=== PATIENT | male | born 1995 | race Caucasian/White ===

== ENCOUNTER 2016-05-24 16:39 | Emergency (ER) | payer OTHER ==
--- NOTE | 2016-05-24 16:58 | ED NURSING NOTES ---
Clinical Report - Nurses [facility] [address] [place] [address] 05/24/2016 16:41 Patient: AMARA RAMIREZ TRIAGE Triage time 16:47. Acuity: LEVEL 3. Chief Complaint: INJURY TO LEFT HAND. INJURY TO THE LEFT INDEX FINGER. Alert. No acute distress. --16:53 Lyubov Blanco R.N. 16:47 05/24/16. BP: 138/64. HR: 83. RR: 16. O2 saturation: 100%. Temp: 98.8 F (oral). Pain level now: 0/10. --16:53 Lyubov Blanco R.N. 16:47 05/24/16. BP: 138/64. HR: 83. RR: 16. O2 saturation: 100%. Temp: 98.8 F (oral). Pain level now: 0/10. --16:53 Lyubov Blanco R.N. Weight: 73 kg stated. Height/Length: 70 inches Per Patient. BMI: 23.1. --16:50 Lyubov Blanco R.N. Medications None. --16:48 Lyubov Blanco R.N. Medication/allergy information source: the patient. --16:53 Lyubov Blanco R.N. Allergies No Known Drug Allergy. --16:48 Lyubov Blanco R.N. History Arrived by private vehicle. Historian: patient. No primary care physician. This occurred just prior to arrival. Occurred at work. He sustained a laceration from a knife. Treatment VENEREAL DISEASE CONTROL HEAD: None. PAST MEDICAL HX: Negative. Tetanus status: unknown. SURGERY HX: ( ear tubes). SOCIAL HX: Light tobacco smoker (cigarette)- less than 1/2 a pack per day. Alcohol use; consumes four beers a day. FALL RISK ASSESSMENT: Fall risk assessment completed. No fall risk identified. NUTRITIONAL RISK ASSESSMENT: The nutritional risk assessment revealed no deficiencies. FUNCTIONAL ASSESSMENT: Functional assessment: no impairments noted. LEARNING NEEDS ASSESSMENT: The learning needs assessment revealed no barriers. SKIN INTEGRITY ASSESSMENT: Skin integrity risk assessment completed. No skin integrity risk identified. --16:53 Lyubov Blanco R.N. Interventions ID band on patient. To room. --16:53 Lyubov Blanco R.N. PHYSICAL ASSESSMENT Ambulatory to room. GENERAL / NEURO / PSYCH: Oriented X 4. Alert. Appears anxious. EXTREMITIES: Left index finger: superficial 1.5 cm laceration with controlled bleeding. SKIN: Skin is warm and dry. Laceration to left index finger. No bleeding. --16:54 Lyubov Blanco R.N. NURSING PROGRESS NOTES 16:46 05/24/2016 TDAP IM 0.5 mL given. (Lot#: [id number], expiration date: 12/18/2017, Client Relations Representative: sanofi pasteur). Given in the right deltoid. Allergies verified and confirmed 5 rights. Vaccine information statement provided to the patient. --16:51 Riley Ortiz R.N. Extremity elevated. Two patient identifiers checked. Call light placed in reach. Side rails up x 2. Bed placed in lowest position. Brakes of bed on. Patient ready for evaluation. --16:54 Lyubov Blanco R.N. Wound cleansed with water. --16:54 Lyubov Blanco R.N. late entry -17:05. Applied dressing consisting of Band-Aid, following the application of antibiotic ointment. --17:11 Riley Ortiz R.N. DISPOSITION / DISCHARGE 17:10 05/24/16. Condition at departure: improved. The goals identified in the patient's plan of care were met. No learning barriers present. Discharge instructions provided and reviewed with the patient. Reviewed warnings. Reviewed medication(s). Treatments reviewed. Patient verbalized understanding. Written instructions provided in [place]. The patient was discharged by the nurse practitioner. He was discharged home and unaccompanied at time of discharge. He left the Emergency Department ambulatory and via private vehicle. Patient driving. FALL RISK ASSESSMENT: Fall risk assessment completed. No fall risk identified. --17:10 Riley Ortiz R.N. 16:47 05/24/16. BP: 138/64. HR: 83. RR: 16. O2 saturation: 100%. Temp: 98.8 F (oral). Pain level now: 0/10. --17:10 Riley Ortiz R.N. 17:11 05/24/16. Departure time: 17:11. --17:11 Riley Ortiz R.N. Locked/Released at 05/24/2016 17:16 by Riley Ortiz R.N.
--- NOTE | 2016-05-24 16:58 | ED ORDER SUMMARY ---
..... Patient: AMARA RAMIREZ OrderSheet [facility] VisitID: [id number] [address] [place] [address] 21y, M Registration Date/Time: 05/24/2016 ORDER SHEET Weight: 73.0 kg (stated) Allergies: No Known Drug Allergy GENERAL ORDERS: Dress Wounds (16:54 05/24/2016 HBivens A.R.N.P.) (Ack 16:56 SRoberts R.N.) (16:56 SRoberts R.N.) MEDICATION ORDERS: Tdap IM 0.5 mL (NOW, per protocol) (16:50 05/24/2016 Shantel R.N. per protocol) (16:51 Shantel R.N.) IV FLUIDS: ORDER SHEET NOTES: [Electronically signed by Riley Ortiz R.N. (17:16 05/24/2016)] [Electronically signed by Valerie BonillaRMichelleN.PMichelle (17:17 05/24/2016)] [Electronically locked/signed by Riley Ortiz R.N. (17:16 05/24/2016)]
--- NOTE | 2016-05-24 16:58 | ED ORDER SUMMARY ---
..... Patient: AMARA RAMIREZ OrderSheet [facility] VisitID: [id number] [address] [place] [address] 21y, M Registration Date/Time: 05/24/2016 ORDER SHEET Weight: 73.0 kg (stated) Allergies: No Known Drug Allergy GENERAL ORDERS: Dress Wounds (16:54 05/24/2016 HBivens A.R.N.P.) (Ack 16:56 SRoberts R.N.) (16:56 SRoberts R.N.) MEDICATION ORDERS: Tdap IM 0.5 mL (NOW, per protocol) (16:50 05/24/2016 Shantel R.N. per protocol) (16:51 Shantel R.N.) IV FLUIDS: ORDER SHEET NOTES: [Electronically signed by Riley Ortiz R.N. (17:16 05/24/2016)] [Electronically signed by Valerie BonillaRMichelleN.PMichelle (17:17 05/24/2016)] [Electronically locked/signed by Riley Ortiz R.N. (17:16 05/24/2016)]
--- NOTE | 2016-05-24 16:58 | ED NURSING NOTES ---
Clinical Report - Nurses [facility] [address] [place] [address] 05/24/2016 16:41 Patient: AMARA RAMIREZ TRIAGE Triage time 16:47. Acuity: LEVEL 3. Chief Complaint: INJURY TO LEFT HAND. INJURY TO THE LEFT INDEX FINGER. Alert. No acute distress. --16:53 Lyubov Blanco R.N. 16:47 05/24/16. BP: 138/64. HR: 83. RR: 16. O2 saturation: 100%. Temp: 98.8 F (oral). Pain level now: 0/10. --16:53 Lyubov Blanco R.N. 16:47 05/24/16. BP: 138/64. HR: 83. RR: 16. O2 saturation: 100%. Temp: 98.8 F (oral). Pain level now: 0/10. --16:53 Lyubov Blanco R.N. Weight: 73 kg stated. Height/Length: 70 inches Per Patient. BMI: 23.1. --16:50 Lyubov Blanco R.N. Medications None. --16:48 Lyubov Blanco R.N. Medication/allergy information source: the patient. --16:53 Lyubov Blanco R.N. Allergies No Known Drug Allergy. --16:48 Lyubov Blanco R.N. History Arrived by private vehicle. Historian: patient. No primary care physician. This occurred just prior to arrival. Occurred at work. He sustained a laceration from a knife. Treatment DIRECTOR OF INCOME TAX: None. PAST MEDICAL HX: Negative. Tetanus status: unknown. SURGERY HX: ( ear tubes). SOCIAL HX: Light tobacco smoker (cigarette)- less than 1/2 a pack per day. Alcohol use; consumes four beers a day. FALL RISK ASSESSMENT: Fall risk assessment completed. No fall risk identified. NUTRITIONAL RISK ASSESSMENT: The nutritional risk assessment revealed no deficiencies. FUNCTIONAL ASSESSMENT: Functional assessment: no impairments noted. LEARNING NEEDS ASSESSMENT: The learning needs assessment revealed no barriers. SKIN INTEGRITY ASSESSMENT: Skin integrity risk assessment completed. No skin integrity risk identified. --16:53 Lyubov Blanco R.N. Interventions ID band on patient. To room. --16:53 Lyubov Blanco R.N. PHYSICAL ASSESSMENT Ambulatory to room. GENERAL / NEURO / PSYCH: Oriented X 4. Alert. Appears anxious. EXTREMITIES: Left index finger: superficial 1.5 cm laceration with controlled bleeding. SKIN: Skin is warm and dry. Laceration to left index finger. No bleeding. --16:54 Lyubov Blanco R.N. NURSING PROGRESS NOTES 16:46 05/24/2016 TDAP IM 0.5 mL given. (Lot#: [id number], expiration date: 12/18/2017, [employer] Operations Supervisor: sanofi pasteur). Given in the right deltoid. Allergies verified and confirmed 5 rights. Vaccine information statement provided to the patient. --16:51 Riley Ortiz R.N. Extremity elevated. Two patient identifiers checked. Call light placed in reach. Side rails up x 2. Bed placed in lowest position. Brakes of bed on. Patient ready for evaluation. --16:54 Lyubvo Blanco R.N. Wound cleansed with water. --16:54 Lyubov Blanco R.N. late entry -17:05. Applied dressing consisting of Band-Aid, following the application of antibiotic ointment. --17:11 Riley Ortiz R.N. DISPOSITION / DISCHARGE 17:10 05/24/16. Condition at departure: improved. The goals identified in the patient's plan of care were met. No learning barriers present. Discharge instructions provided and reviewed with the patient. Reviewed warnings. Reviewed medication(s). Treatments reviewed. Patient verbalized understanding. Written instructions provided in [place]. The patient was discharged by the nurse practitioner. He was discharged home and unaccompanied at time of discharge. He left the Emergency Department ambulatory and via private vehicle. Patient driving. FALL RISK ASSESSMENT: Fall risk assessment completed. No fall risk identified. --17:10 Riley Ortiz R.N. 16:47 05/24/16. BP: 138/64. HR: 83. RR: 16. O2 saturation: 100%. Temp: 98.8 F (oral). Pain level now: 0/10. --17:10 Riley Ortiz R.N. 17:11 05/24/16. Departure time: 17:11. --17:11 Riley Ortiz R.N. Locked/Released at 05/24/2016 17:16 by Riley Ortiz R.N.
--- NOTE | 2016-05-24 16:58 | ED CLINICAL REPORT ---
Clinical Report - Physicians/Mid Levels [facility] [address] [place] [address] 05/24/2016 16:41 Patient: AMARA RAMIREZ Time Seen: 16:47; upon arrival, initial patient contact, initial documentation, patient care assumed. Arrived- By private vehicle. Historian- patient. HISTORY OF PRESENT ILLNESS Chief Complaint: Injury to the left index finger. The injury happened today. Occurred at work. The patient sustained a laceration from a knife. Patient is not experiencing pain. Patient denies injury to the head or neck. No other injury. REVIEW OF SYSTEMS The patient sustained a laceration. No swelling, tingling, numbness or weakness. All systems otherwise negative, except as recorded above. PAST HISTORY Negative. SURGERY HX: ( ear tubes). The patient's dominant hand is the right. Tetanus immunization status is up-to-date. SOCIAL HISTORY Light tobacco smoker. Regular alcohol use; consumes four beers a day. No drug use. No recent travel. Is a local resident. FAMILY HISTORY No significant family medical history. ADDITIONAL NOTES The nursing notes have been reviewed with agreement regarding the chief complaint, HPI, ROS, PMH and patient medications and allergies. PHYSICAL EXAM Vital Signs: 05/24/2016 16:47 BP: 138/64. HR: 83. RR: 16. O2 saturation: 100%. Temp: 98.8 F. Pain level now: 0/10. Have been reviewed as normal and appear to be correct. Appearance: Alert. Oriented X3. No acute distress. Head: Head atraumatic. Eyes: Pupils equal, round and reactive to light. Eyes normal inspection. Respiratory: No respiratory distress. Skin: Skin warm and dry. Skin intact. Extremities: Hand injury present. Left index finger: superficial 0.5 cm laceration of the volar aspect and distal phalanx. Neurovascular intact distally. (1/2 cm superficial flap lac, no active bleeding, nontender, no closure needed). No erythema, tenderness, swelling, abrasion or ecchymosis. No puncture wound, foreign body or deformity. No limitation in movement. No subungual hematoma or amputation present. No wrist injury. Hand and wrist exam otherwise negative. Extremities otherwise negative. Neuro, Vascular and Tendons: Vascular status intact. Sensation intact. Motor intact. Tendon function intact. Neuro: Oriented X 3. No motor deficit. No sensory deficit. Note: isolated injury to finger. PROGRESS AND PROCEDURES Course of Care: 17:17 05/24/16. L&I paperwork completed. Patient counseled in person regarding the patient's stable condition and diagnosis. 16:57. Differential Diagnosis: Other possible considerations: finger lac, fb, avulsion, tendon injury. Above considerations are based on history and physical exam. Differential diagnosis was discussed with patient. Disposition: Discharged home in good and improved condition (16:57). Condition: good and stable. CLINICAL IMPRESSION Single superficial laceration to the left index finger.Treatment of laceration not delayed. No infection or foreign body present. INSTRUCTIONS Protect wound and keep wound area clean. Soak in warm soapy water twice daily. Apply bacitracin twice daily. Warnings: GENERAL WARNINGS: Return or contact your physician immediately if your condition worsens or changes unexpectedly, if not improving as expected, or if other problems arise. Specifically return if problem worsens. Follow-up: Follow up with your doctor in about three days as needed and for wound check. Call for an appointment. Summary of care provided to patient. Understanding of the discharge instructions verbalized by patient. (Electronically signed by Valerie Bonilla A.R.N.P. 05/24/2016 17:17)
--- NOTE | 2016-05-24 17:17 | ED MED RECONCILIATION SUMMARY ---
Patient: AMARA RAMIREZ Medication Reconciliation Report [facility] VisitID: [id number] [address] [place] [address] 21y, M Registration Date/Time: 05/24/2016 Weight: 73.0 kg Height/Length: 70 in. BMI: 23.1 ALLERGIES: No Known Drug Allergy The patient's Home Medications are listed below: NONE. The source(s) of the original Home Medication information: patient The following Medications were given to the patient in the Emergency Department: TDAP [IM] IM 0.5 mL, administered: 05/24/2016 4:46:00 PM The following Medications were prescribed to the patient: None.
--- NOTE | 2016-05-24 17:17 | ED MAR SUMMARY ---
..... Medication Administration Record [facility] [address] [place] [address] Patient: AMARA RAMIREZ Visit ID: [id number] 21y, M Weight: 73.0 kg Height/Length: 70 in BMI: 23.1 ALLERGIES: No Known Drug Allergy Given 16:46 05/24/2016 Riley Ortiz R.N. Medication Administered: TDAP [IM], Dose: 0.5 mL IM. Medication Ordered: Tdap IM 0.5 mL (NOW, per protocol).
--- NOTE | 2016-05-24 17:17 | ED DISCHARGE INSTRUCTIONS ---
Patient: AMARA RAMIREZ General Instructions [facility] VisitID: [id number] [place] [address] 21y, M Registration Date/Time: 05/24/2016 Single superficial laceration to the left index finger.Treatment of laceration not delayed. No infection or foreign body present. INSTRUCTIONS Protect wound and keep wound area clean. Soak in warm soapy water twice daily. Apply bacitracin twice daily. Warnings: GENERAL WARNINGS: Return or contact your physician immediately if your condition worsens or changes unexpectedly, if not improving as expected, or if other problems arise. Specifically return if problem worsens. Follow-up: Follow up with your doctor in about three days as needed and for wound check. Call for an appointment. Summary of care provided to patient. Understanding of the discharge instructions verbalized by patient. ADDITIONAL INFORMATION Laceration (All Closures) Alaceration is a cut through the skin. This will usually require stitches (sutures) or luis if it is deep. Minor cuts may be treated with a surgical tape closure orskin glue. Home care The following guidelines will help you care for your laceration at home: Extremity, face, or trunk wounds Keep the wound clean and dry. If a bandage was applied and it becomes wet or dirty, replace it. Otherwise, leave it in place for the first 24 hours. If stitches or luis were used, clean the wound daily. After removing the bandage, wash the area with soap and water. Use a wet cotton swab to loosen and remove any blood or crust that forms. The doctor may prescribe an antibiotic cream or ointment to prevent infection. Do not stop taking this medication until you have finished the prescribed course or the doctor tells you to stop. The doctor may also prescribe medications for pain. Follow the doctors instructions for taking these medications. You may remove the bandage to shower as usual after the first 24 hours, but do not soak the area in water (no swimming) until the stitches or luis are removed. If surgical tape was used, keep the area clean and dry. If it becomes wet, blot it dry with a towel. If skin glue was used, do not scratch, rub, or pick at the adhesive film. Do not place tape directly over the film. Do not apply liquid, ointment, or creams to the wound while the film is in place. Do not clean the wound with peroxide and do not apply ointments. Avoid activities that cause heavy sweating until the film has fallen off. Protect the wound from prolonged exposure to sunlight or tanning lamps. You may shower as usual but do not soak the wound in water (no baths or swimming). The film will fall off by itself in 510 days. Scalp wounds During the first two days, you may carefully rinse your hair in the shower to remove blood, glass or dirt particles. After two days, you may shower and shampoo your hair normally. Do not soak your scalp in the tub or go swimming until the stitches or luis have been removed. Talk with your doctor before applying any antibiotic ointment to the wound. Mouth wounds Eat soft foods to reduce pain. If the cut is inside of your mouth, clean by rinsing after each meal and at bedtime with a mixture of equal parts water and hydrogen peroxide (do not swallow!). Or, you can use a cotton swab to directly apply hydrogen peroxide onto the cut. Mouth wounds can be painful when eating. You may use an [id number] local numbing solution for pain relief. If this is not available, you may use any numbing solution for teething babies. You may apply this directly to the sores with a cotton-tip swab or with your finger. Follow-up care Follow up with your health care provider. Most skin wounds heal within ten days. Mouth and facial wounds heal within five days. However, even with proper treatment, a wound infection may sometimes occur. Therefore, you should check the wound daily for signs of infection listed below. Stitches should be removed from the face within five days; stitches and luis should be removed from other parts of the body within 714 days. If dissolving stitches were used in the mouth, these will fall out or dissolve without the need for removal. If tape closures were used, remove them yourself if they have not fallen off after 7 days. Ifskin glue was used, the film will fall off by itself in 510 days. When to seek medical care Get prompt medical attention if any of these occur: Bleeding not controlled by direct pressure Signs of infection, including increasing pain in the wound, increasing wound redness or swelling, or pus coming from the wound Fever of 100.4F (38C) or higher, or as directed by your health care provider Stitches or luis come apart or fall out or surgical tape falls off before 7 days Wound edges re-open Laceration, Extremity (Sutures, [place], Or Tape) A laceration is a cut through the skin. This will usually require stitches (sutures) or luis if it is deep. Minor cuts may be treated with surgical tape closures. Home care The following guidelines will help you care for your laceration at home: Keep the wound clean and dry. If a bandage was applied and it becomes wet or dirty, replace it. Otherwise, leave it in place for the first 24 hours, then change it once a day or as directed. If stitches or luis were used, clean the wound daily: After removing the bandage, wash the area with soap and water. Use a wet cotton swab to loosen and remove any blood or crust that forms. After cleaning, keep the wound clean and dry. Talk with your doctor before applying any antibiotic ointment to the wound. Reapply the bandage. You may remove the bandage to shower as usual after the first 24 hours, but do not soak the area in water (no swimming) until the stitches or luis are removed. If surgical tape closures were used, keep the area clean and dry. If it becomes wet, blot it dry with a towel. The doctor may prescribe an antibiotic cream or ointment to prevent infection. Do not stop taking this medication until you have finished the prescribed course or the doctor tells you to stop. The doctor may also prescribe medications for pain. Follow the doctors instructions for taking these medications. If you have chronic liver or kidney disease or ever had a stomach ulcer or GI bleeding, talk with your doctor before using these medicines. Follow-up care Follow up with your health care provider. Most skin wounds heal within ten days. However, an infection may sometimes occur despite proper treatment. Therefore, check the wound daily for the signs of infection listed below. Stitches and luis should be removed within 714 days. If surgical tape closures were used, you may remove them after 10 days, if they have not fallen off by then. Notify your doctor if you notice persistent numbness or weakness in the injured extremity. (Note:A radiologist will review any X-rays that were taken. We will notify you of any new findings that may affect your care.) When to seek medical care Get prompt medical attention if any of these occur: Increasing pain in the wound Redness, swelling, or pus coming from the wound Fever of 100.4F (38C) or higher, or as directed by your health care provider If stitches or luis come apart or fall out before your next appointment If the surgical tape closures fall off within seven days, or the wound edges re-open Bleeding not controlled by direct pressure You have been given the following additional information: Laceration, All Laceration, Extrem (Suture, Staple, Or Tape) (Electronically signed by Valerie Bonilla A.R.N.P. 05/24/2016 17:17)
--- NOTE | 2016-05-24 17:17 | ED MED RECONCILIATION SUMMARY ---
Patient: AMARA RAMIREZ Medication Reconciliation Report [facility] VisitID: [id number] [address] [place] [address] 21y, M Registration Date/Time: 05/24/2016 Weight: 73.0 kg Height/Length: 70 in. BMI: 23.1 ALLERGIES: No Known Drug Allergy The patient's Home Medications are listed below: NONE. The source(s) of the original Home Medication information: patient The following Medications were given to the patient in the Emergency Department: TDAP [IM] IM 0.5 mL, administered: 05/24/2016 4:46:00 PM The following Medications were prescribed to the patient: None.
--- NOTE | 2016-05-24 17:17 | ED MAR SUMMARY ---
..... Medication Administration Record [facility] [address] [place] [address] Patient: AMARA RAMIREZ Visit ID: [id number] 21y, M Weight: 73.0 kg Height/Length: 70 in BMI: 23.1 ALLERGIES: No Known Drug Allergy Given 16:46 05/24/2016 Riley Ortiz R.N. Medication Administered: TDAP [IM], Dose: 0.5 mL IM. Medication Ordered: Tdap IM 0.5 mL (NOW, per protocol).
== END 2016-05-24 17:11 | disposition home or self-care (01) ==
LOC: ED SRH 16:39
DX: S61.211A Laceration without foreign body of left index finger without damage to nail, initial encounter (principal); W26.0XXA Contact with knife, initial encounter; Y92.89 Other specified places as the place of occurrence of the external cause; Y99.0 Civilian activity done for income or pay; Z23 Encounter for immunization; F17.200 Nicotine dependence, unspecified, uncomplicated

== ENCOUNTER 2016-06-02 18:50 | Emergency (ER) | payer SELFPAY ==
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
--- NOTE | 2016-06-02 20:12 | ED ORDER SUMMARY ---
..... Patient: AMARA RAMIREZ OrderSheet [facility] VisitID: [id number] [address] [place] [address] 21y, M Registration Date/Time: 06/02/2016 ORDER SHEET Weight: 544.3 kg (stated) Allergies: None GENERAL ORDERS: Shoulder 2V or more Left Urgent (19:35 06/02/2016 Loretta Silverio) ([facility] 19:37 Han) (20:10 RFay) MEDICATION ORDERS: IV FLUIDS: ORDER SHEET NOTES: [Electronically signed by Hawk Tom Dr. (20:17 06/02/2016)] [Electronically signed by Osei Khan R.N. (20:34 06/02/2016)] [Electronically locked/signed by Osei Khan R.N. (20:34 06/02/2016)]
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
--- NOTE | 2016-06-02 20:12 | ED ORDER SUMMARY ---
..... Patient: AMARA RAMIREZ OrderSheet [facility] VisitID: [id number] [address] [place] [address] 21y, M Registration Date/Time: 06/02/2016 ORDER SHEET Weight: 544.3 kg (stated) Allergies: None GENERAL ORDERS: Shoulder 2V or more Left Urgent (19:35 06/02/2016 Loretta Silverio) ([facility] 19:37 Han) (20:10 RFay) MEDICATION ORDERS: IV FLUIDS: ORDER SHEET NOTES: [Electronically signed by Hawk Tom Dr. (20:17 06/02/2016)] [Electronically signed by Osei Khan R.N. (20:34 06/02/2016)] [Electronically locked/signed by Osei Khan R.N. (20:34 06/02/2016)]
--- NOTE | 2016-06-02 20:26 | DIAGNOSTIC IMAGING REPORT ---
PROCEDURE: XR SHOULDER 2 OR MORE VW-LEFT INDICATION: PAIN TECHNIQUE: Three views. COMPARISON: None. FINDINGS: Osseous structures and joint spaces are normal. IMPRESSION: 1. Normal left shoulder.
--- NOTE | 2016-06-02 20:34 | ED MAR SUMMARY ---
..... Medication Administration Record [facility] [address] [place], [place] [id number] Patient: AMARA RAMIREZ Visit ID: [id number] 21y, M Weight: 544.3 kg Height/Length: 69 in BMI: 177.3 ALLERGIES: None
--- NOTE | 2016-06-02 20:34 | ED MED RECONCILIATION SUMMARY ---
Patient: AMARA RAMIREZ Medication Reconciliation Report [facility] VisitID: [id number] [address] [place] [address] 21y, M Registration Date/Time: 06/02/2016 Weight: 544.3 kg Height/Length: 69 in. BMI: 177.3 ALLERGIES: None The patient's Home Medications are listed below: THE FOLLOWING MEDICATIONS NEED TO BE RECONCILED: Aspirin Oral The source(s) of the original Home Medication information: Not obtained. The following Medications were given to the patient in the Emergency Department: None. The following Medications were prescribed to the patient: Diclofenac 50 mg tablets: take 1 tablet orally every 8 hours as needed for pain or stiffness. Dispense thirty (30). No refill. -- Hawk Tom Dr.
--- NOTE | 2016-06-02 20:34 | ED MED RECONCILIATION SUMMARY ---
Patient: AMARA RAMIREZ Medication Reconciliation Report [facility] VisitID: [id number] [address] [place] [address] 21y, M Registration Date/Time: 06/02/2016 Weight: 544.3 kg Height/Length: 69 in. BMI: 177.3 ALLERGIES: None The patient's Home Medications are listed below: THE FOLLOWING MEDICATIONS NEED TO BE RECONCILED: Aspirin Oral The source(s) of the original Home Medication information: Not obtained. The following Medications were given to the patient in the Emergency Department: None. The following Medications were prescribed to the patient: Diclofenac 50 mg tablets: take 1 tablet orally every 8 hours as needed for pain or stiffness. Dispense thirty (30). No refill. -- Hawk Tom Dr.
--- NOTE | 2016-06-02 20:34 | ED DISCHARGE INSTRUCTIONS ---
Patient: AMARA RAMIREZ General Instructions [facility] VisitID: [id number] [address] [place] [address] 21y, M Registration Date/Time: 06/02/2016 Acute inflammatory tendonitis in the left shoulder. INSTRUCTIONS Apply ice for 20 minutes four times a day until better. Don't apply ice directly to skin. Prescription Medications: Diclofenac 50 mg tablets: take 1 tablet orally every 8 hours as needed for pain or stiffness. Dispense thirty (30). No refill. Follow-up: Screening today revealed the patient's blood pressure to be in the pre-hypertensive range. The patient should follow up with a primary care provider for blood pressure management. Follow-up with: [facility], , [address], [place], [address] Follow up in about four days. Call for an appointment. ADDITIONAL INFORMATION Tendonitis A tendon is the thick fibrous cord that joins muscle to bone and causes joints to move. Tendonitis is inflammation of the tendon which may be due to overuse, injury or infection. This usually involves the shoulders, forearm, wrist, hands and foot. Symptoms include local pain, swelling and tenderness to the touch. Movement of the involved joint increases the pain. Tendonitis requires about 4 to 6 weeks to heal. It is treated by preventing motion of the tendon with a splint or brace and use of anti-inflammatory medicine. Home Care: Apply an ice pack (ice cubes in a plastic bag, wrapped in a towel) over the injured area for 20 minutes every 1-2 hours the first day for pain relief. Continue this 3-4 times a day until the pain and swelling goes away. Rest the inflamed joint and protect it from movement. You may use ibuprofen (Motrin, Advil) or naproxen (Aleve, Naprosyn) to treat pain and inflammation, unless another medicine was prescribed. If you can't take these medicines, acetaminophen (Tylenol) may help with the pain, but does not treat inflammation. [NOTE : If you have chronic liver or kidney disease or ever had a stomach ulcer or GI bleeding, talk with your doctor before using these medicines.] As your symptoms improve, begin gradual motion at the involved joint. Follow Up With Your Doctor If Not Improving After The First Five Days Of Treatment. Get Prompt Medical Attention If Any Of The Following Occur: Redness over the painful area Increasing pain or swelling at the joint Fever of 100.4F (38C) or higher, or as directed by your healthcare provider You have been given the following additional information: Tendonitis (Electronically signed by aHwk Tom Dr. 06/02/2016 20:17)
--- NOTE | 2016-06-02 20:34 | ED DISCHARGE INSTRUCTIONS ---
Patient: AMARA RAMIREZ General Instructions [facility] VisitID: [id number] [address] [place] [address] 21y, M Registration Date/Time: 06/02/2016 Acute inflammatory tendonitis in the left shoulder. INSTRUCTIONS Apply ice for 20 minutes four times a day until better. Don't apply ice directly to skin. Prescription Medications: Diclofenac 50 mg tablets: take 1 tablet orally every 8 hours as needed for pain or stiffness. Dispense thirty (30). No refill. Follow-up: Screening today revealed the patient's blood pressure to be in the pre-hypertensive range. The patient should follow up with a primary care provider for blood pressure management. Follow-up with: [facility], , [address], [place], [address] Follow up in about four days. Call for an appointment. ADDITIONAL INFORMATION Tendonitis A tendon is the thick fibrous cord that joins muscle to bone and causes joints to move. Tendonitis is inflammation of the tendon which may be due to overuse, injury or infection. This usually involves the shoulders, forearm, wrist, hands and foot. Symptoms include local pain, swelling and tenderness to the touch. Movement of the involved joint increases the pain. Tendonitis requires about 4 to 6 weeks to heal. It is treated by preventing motion of the tendon with a splint or brace and use of anti-inflammatory medicine. Home Care: Apply an ice pack (ice cubes in a plastic bag, wrapped in a towel) over the injured area for 20 minutes every 1-2 hours the first day for pain relief. Continue this 3-4 times a day until the pain and swelling goes away. Rest the inflamed joint and protect it from movement. You may use ibuprofen (Motrin, Advil) or naproxen (Aleve, Naprosyn) to treat pain and inflammation, unless another medicine was prescribed. If you can't take these medicines, acetaminophen (Tylenol) may help with the pain, but does not treat inflammation. [NOTE : If you have chronic liver or kidney disease or ever had a stomach ulcer or GI bleeding, talk with your doctor before using these medicines.] As your symptoms improve, begin gradual motion at the involved joint. Follow Up With Your Doctor If Not Improving After The First Five Days Of Treatment. Get Prompt Medical Attention If Any Of The Following Occur: Redness over the painful area Increasing pain or swelling at the joint Fever of 100.4F (38C) or higher, or as directed by your healthcare provider You have been given the following additional information: Tendonitis (Electronically signed by Hawk Tom Dr. 06/02/2016 20:17)
--- NOTE | 2016-06-02 20:34 | ED MAR SUMMARY ---
..... Medication Administration Record [facility] [address], [place] [id number] Patient: AMARA RAMIREZ Visit ID: [id number] 21y, M Weight: 544.3 kg Height/Length: 69 in BMI: 177.3 ALLERGIES: None
== END 2016-06-02 20:31 | disposition home or self-care (01) ==
LOC: ED SRH 18:50
DX: M65.812 Other synovitis and tenosynovitis, left shoulder (principal); X58.XXXA Exposure to other specified factors, initial encounter; Y93.9 Activity, unspecified; Y92.009 Unspecified place in unspecified non-institutional (private) residence as the place of occurrence of the external cause; Y99.9 Unspecified external cause status; F17.210 Nicotine dependence, cigarettes, uncomplicated